=== PATIENT | male | born 1965 | race Caucasian/White ===

== ENCOUNTER 2024-06-09 10:55 | Emergency (ER) | payer OTHER ==
[2024-06-09] MEDS ORDERED: Ibuprofen 800 MG TAB ONE (11:14)
[2024-06-09] MEDS ORDERED: Lidocaine 1% (PF) 30 ML VIAL ONE (11:15)
== END 2024-06-09 11:50 ==
LOC: NAV ERS 10:55 → EEVIPCON 10:55 → NAV ERS 11:50
DX: L02.413 Cutaneous abscess of right upper limb (principal); L03.113 Cellulitis of right upper limb; I10 Essential (primary) hypertension; E05.90 Thyrotoxicosis, unspecified without thyrotoxic crisis or storm; Z55.6 Problems related to health literacy; Z79.899 Other long term (current) drug therapy
CPT/HCPCS: 10060

== ENCOUNTER 2025-06-05 22:19 | Emergency (ER) | payer OTHER | END 2025-06-05 23:27 | LOC: EEVIPCON 22:19 → NAV ERS 22:19 | DX: B34.9 Viral infection, unspecified (principal); F32.A Depression, unspecified; I10 Essential (primary) hypertension; Z79.899 Other long term (current) drug therapy | CPT/HCPCS: 87081; 87430; 96372; 99283; J1885 ==